=== PATIENT | female | born 1975 | race Caucasian/White ===

== ENCOUNTER 2017-04-08 22:12 | Emergency (ER) | payer SELFPAY ==
[~2017-04-08] VITALS: Ht 162.6 cm; Wt 50.0 kg
[~2017-04-08 22:12] MED LIST: BUPR100CR PO; FIORIC PO; HYDR25R PR; LAMO150 PO; PROM25TA5 PO
[2017-04-08 22:14] VITALS: BP 139/87; PULSE 72; RESP 16; TEMP 98.4; O2SAT 99
--- NOTE | 2017-04-08 22:23 | PD ---
Physical Exam Date Seen by Provider: Apr 08, 2017 Time Seen by Provider: 22:20 Narrative 42 yo female here for evaluation of bilateral flank pain since march 30. History of stones. Not passing. hematuria. No chest pain or SOB. pain is 8/10. Vital signs stable in triage. Awaiting bed placement. Data Data Last Documented VS Vital Signs Date Time Temp Pulse Resp B/P Pulse Ox O2 Delivery O2 Flow Rate FiO2 04/08/17 22:14 98.4 72 16 139/87 99 MDM Medical Record Reviewed: Yes Supervised Visit with JAQUELINE: Evens Gould Apr 08, 2017 22:23
[2017-04-08] MEDS ORDERED: SODIUM CHLOR 0.9% 1000 ML INJ 1,000 ML IV ONE (22:30)
[2017-04-08] MEDS ORDERED: KETOROLAC TROMETHAMINE 30 MG/ML (IVP) VIAL IVP ONE (22:45)
[2017-04-08] MEDS ORDERED: KETO10 PO (22:45)
[2017-04-08] MEDS ORDERED: MORPHINE SULFATE 4 MG/ML INJ IV ONE (22:45)
[2017-04-08] MEDS ORDERED: PROM25TA10 PO (22:45)
[2017-04-08] MEDS ORDERED: ONDANSETRON HCL 4 MG/2 ML VIAL IVP ONE (22:45)
[2017-04-08 22:52] LABS: AUTOMATED NEUTROPHIL # 4.5 TH/MM3 (1.8-7.7); BASOPHIL % 0.5 % (0.0-2.0); EOSINOPHIL # 0.1 TH/MM3 (0-0.4); EOSINOPHIL % 1.7 % (0.0-4.0); HEMATOCRIT 38.7 % (35.0-46.0); HEMO FLAGS DIFF FINAL; LYMPHOCYTE # 2.7 TH/MM3 (1.0-4.8); MEAN CELL VOLUME 88.2 FL (80.0-100.0); MEAN CORPUSCULAR HEMOGLOBIN 30.7 PG (27.0-34.0); MEAN CORPUSCULAR HGB CONC 34.8 % (32.0-36.0); MONO % 7.2 % (0.0-8.0); NEUT % 56.6 % (16.0-70.0); PLATELET COUNT 207 TH/MM3 (150-450); RED BLOOD COUNT 4.38 MIL/MM3 (4.00-5.30); RED CELL DISTRIBUTION WIDTH 12.4 % (11.6-17.2); WHITE BLOOD COUNT 7.9 TH/MM3 (4.0-11.0)
[2017-04-08 23:15] LABS: BLOOD, URINE MOD (NEG); CALCIUM OXALATE CRYSTALS,URINE OCC /hpf; COMMENT (UR) CULTURE INDICATED; CULTURE IF INDICATED CULTURE INDICATED; GLUCOSE,URINE NEG (NEG); KETONE, URINE NEG (NEG); MUCUS URINE FEW /lpf (OCC); NITRITE,URINE NEG (NEG); PH, URINE 5.5 (5.0-8.5); SQUAMOUS EPITHELIAL CELL URINE 5 /hpf (0-5); URINE COLOR YELLOW (YELLW/STRAW)
--- NOTE | 2017-04-08 23:40 | RADRPT ---
EXAM DATE/TIME: 04/08/2017 23:23 [facility] COMPARISON: CT ABDOMEN & PELVIS W CONTRAST, December 31, 2014, 22:23. INDICATIONS : Bilateral flank pain. MEDICAL HISTORY : Renal calculi. SURGICAL HISTORY : section. Lithotripsy. Tubal ligation. ENCOUNTER: Initial ACUITY: 1 day PAIN SCORE: 8/10 LOCATION: Bilateral Abdominal, flank FINDINGS: There is a 5 mm oval calcifications superimposed upon the right transverse process of L2. Several sm aller calcifications are projected of the mid lower pole of both kidneys, 3 on the right and 2 on the left, all measuring 5 mm or less. Calcified phleboliths in the pelvis. The osseous structures are grossly intact. No dilated loops of small or large bowel. CONCLUSION: Bilateral calcification projected over both kidneys suggest renal stones. There is also a 5 mm calci fication in the right flank at the level of L2 which may represent a stone in the extra renal pelvis or proximal ureter. Arcenio Ashley MD on April 08, 2017 at 23:36 Board Certified Radiologist. This report was verified electronically.
[2017-04-08] MEDS ORDERED: PROCHLORPERAZINE INJ 10 MG/2 ML VIAL IV PUSH ONE (23:45)
[2017-04-08 23:53] LABS: ANION GAP 10 MEQ/L (5-15); AST (GOT) 13 U/L (15-37); BICARBONATE 23.5 MEQ/L (21.0-32.0); BLOOD UREA NITROGEN 19 MG/DL (7-18); CHLORIDE 105 MEQ/L (98-107); GLOMERULAR FILTRATION RATE 96 ML/MIN (>89); POTASSIUM 3.3 MEQ/L (3.5-5.1); SODIUM (NA) 138 MEQ/L (136-145)
[2017-04-08 23:54] LABS: ALT (GPT) 20 U/L (10-53)
[2017-04-08 23:56] LABS: ALKALINE PHOSPHATASE 68 U/L (45-117); TOTAL BILIRUBIN ADULT 0.4 MG/DL (0.2-1.0)
--- NOTE | 2017-04-09 00:03 | PD ---
HPI Chief Complaint: Flank/Kidney Pain Time Seen by Provider: 22:29 Travel History International Travel<30 days: No Contact w/Intl Traveler<30days: No Traveled to known affect area: No History of Present Illness HPI HAS H/O KIDNEY STONES, SEES DR HUTCHINSON. C/O RT FLANK PAIN, IN PAST HAS BEEN ABLE TO PASS LARGE 8MM STONES. SHE HAS NOTED HEMATURIA IN ADDITION TO FLANK PAIN, 8/10, RAD FROM RT FLANK TO RLQ, NO IMPROVING OR AGGRAVATING FACTORS. DENIES N/V/D/CP/WERNER AT THIS POINT PFSH Past Medical History Depression: Yes Cancer: Yes (CARCINOMA ENSITUE) High Cholesterol: Yes Diminished Hearing: No Migraines: Yes Tetanus Vaccination: > 5 Years ?: Not LMP: "does not have them" Tubal Ligation: Yes Past Surgical History Section: Yes (X2) Genitourinary Surgery: Yes (LITHOTRIPSY X9) Gynecologic Surgery: Yes (CERVICAL CONE AND BIOPSY) Pacemaker: No Social History Alcohol Use: Yes (occasionaly ) Tobacco Use: No Substance Use: No Allergies-Medications (Allergen,Severity, Reaction): Coded Allergies: Darvocet-N 100 (Verified Allergy, Severe, 04/08/17) Cervidil Vaginal Insert (Verified Adverse Reaction, Severe, 04/08/17) Reported Meds & Prescriptions Reported Meds & Active Scripts Active Reported Ketorolac (Ketorolac Tromethamine) 10 Mg Tab 10 Mg PO TID Phenergan (Promethazine HCl) 25 Mg Tablet 25 Mg PO Q6H PRN Review of Systems Except as stated in HPI: all other systems reviewed are Neg Genitourinary: Positive: Hematuria, Flank Pain Physical Exam Narrative GENERAL: SKIN: Warm and dry. HEAD: Atraumatic. Normocephalic. EYES: Pupils equal and round. No scleral icterus. No injection or drainage. ENT: No nasal bleeding or discharge. Mucous membranes pink and moist. NECK: Trachea midline. No JVD. CARDIOVASCULAR: Regular rate and rhythm. RESPIRATORY: No accessory muscle use. Clear to auscultation. Breath sounds equal bilaterally. GASTROINTESTINAL: Abdomen soft, non-tender, nondistended. Hepatic and splenic margins not palpable. MUSCULOSKELETAL: Extremities without clubbing, cyanosis, or edema. No obvious deformities. NEUROLOGICAL: Awake and alert. No obvious cranial nerve deficits. Motor grossly within normal limits. Five out of 5 muscle strength in the arms and legs. Normal speech. PSYCHIATRIC: Appropriate mood and affect; insight and judgment normal. Data Data Last Documented VS Vital Signs Date Time Temp Pulse Resp B/P Pulse Ox O2 Delivery O2 Flow Rate FiO2 04/08/17 22:14 98.4 72 16 139/87 99 Orders Complete Blood Count With Diff (04/08/17 22:30) Urinalysis - C+S If Indicated (04/08/17 22:30) Ed Urine Pregnancytest Poc (04/08/17 22:30) Ecg Monitoring (04/08/17 22:30) Iv Access Insert/Monitor (04/08/17 22:30) Sodium Chlor 0.9% 1000 Ml Inj (Ns 1000 M (04/08/17 22:30) Ketorolac Inj (Toradol Inj) (04/08/17 22:45) Morphine Inj (Morphine Inj) (04/08/17 22:45) Ondansetron Inj (Zofran Inj) (04/08/17 22:45) Comprehensive Metabolic Panel (04/08/17 23:07) Lipase (04/08/17 23:07) Abdomen, Kub Only (04/08/17 23:07) Urine Culture (04/08/17 22:35) Prochlorperazine Inj (Compazine Inj) (04/08/17 23:45) Labs Laboratory Tests Test 04/08/17 04/08/17 22:35 23:00 White Blood Count 7.9 TH/MM3 Red Blood Count 4.38 MIL/MM3 Hemoglobin 13.5 GM/DL Hematocrit 38.7 % Mean Corpuscular Volume 88.2 FL Mean Corpuscular Hemoglobin 30.7 PG Mean Corpuscular Hemoglobin 34.8 % Concent Red Cell Distribution Width 12.4 % Platelet Count 207 TH/MM3 Mean Platelet Volume 8.5 FL Neutrophils (%) (Auto) 56.6 % Lymphocytes (%) (Auto) 34.0 % Monocytes (%) (Auto) 7.2 % Eosinophils (%) (Auto) 1.7 % Basophils (%) (Auto) 0.5 % Neutrophils # (Auto) 4.5 TH/MM3 Lymphocytes # (Auto) 2.7 TH/MM3 Monocytes # (Auto) 0.6 TH/MM3 Eosinophils # (Auto) 0.1 TH/MM3 Basophils # (Auto) 0.0 TH/MM3 CBC Comment DIFF FINAL Differential Comment Urine Color YELLOW Urine Turbidity HAZY Urine pH 5.5 Urine Specific [place] 1.025 Urine Protein 100 mg/dL Urine Glucose (UA) NEG mg/dL Urine Ketones NEG mg/dL Urine Occult Blood MOD Urine Nitrite NEG Urine Bilirubin NEG Urine Urobilinogen LESS THAN 2.0 MG/DL Urine Leukocyte Esterase LARGE Urine RBC /hpf Urine WBC 114 /hpf Urine Squamous Epithelial 5 /hpf Cells Urine Calcium Oxalate Crystals OCC /hpf Urine Mucus FEW /lpf Microscopic Urinalysis Comment CULTURE INDICATED Sodium Level 138 MEQ/L Potassium Level 3.3 MEQ/L Chloride Level 105 MEQ/L Carbon Dioxide Level 23.5 MEQ/L Anion Gap 10 MEQ/L Blood Urea Nitrogen 19 MG/DL Creatinine 0.68 MG/DL Estimat Glomerular Filtration 96 ML/MIN Rate Random Glucose 97 MG/DL Calcium Level 8.5 MG/DL Total Bilirubin 0.4 MG/DL Aspartate Amino Transf 13 U/L (AST/SGOT) Alanine Aminotransferase 20 U/L (ALT/SGPT) Alkaline Phosphatase 68 U/L Total Protein 6.8 GM/DL Albumin 3.9 GM/DL Lipase 207 U/L [facility] Medical Decision Making Medical Screen Exam Complete: Yes Emergency Medical Condition: Yes Medical Record Reviewed: Yes Differential Diagnosis PYELO V KIDNEY STONE V SBO V RENAL INSUFF V PANCREATITIS Narrative Course NO E/O PYELO, NL RENAL FUNCTIONS, NO PANCREATITIS, KUB SHOWS 5MM URETERAL STONE....PT KINDLY REQUESTED NO NARCOTIC RX , SHE HAS ENOUGH TORADOL AT HOME AND WILL USE THAT INSTEAD. Diagnosis Primary Impression: URETEROLITHIASIS Patient Instructions: General Instructions, Kidney Stones (ED) Scripts Tamsulosin (Flomax)0.4 Mg Cap0.4 Mg PO HS #5 CAP Prov:Derek Fry MD 04/09/17 Disposition: 01 DISCHARGE HOME Condition: Stable Derek Fry MD Apr 09, 2017 00:03
[2017-04-09] MEDS ORDERED: TAMS5CAP PO (01:02)
== END 2017-04-09 01:23 | disposition home or self-care (01) ==
LOC: NEPC 22:12
DX: N20.1 Calculus of ureter (principal); R82.99 Other abnormal findings in urine; E78.00 Pure hypercholesterolemia, unspecified; Z79.899 Other long term (current) drug therapy; Z87.442 Personal history of urinary calculi
CPT/HCPCS: 74000; 80053; 81001; 83690; 84703; 85025; 87086; 96361; 96374; 96375; 99284; J0780; J1885; J2270; J2405; J7030

== ENCOUNTER → 2017-08-28 | Outpatient (CLI) | payer MEDICAID ==
[~2017-08-28] MED LIST changes: -BUPR100CR PO; -FIORIC PO; -HYDR25R PR; +KETO10 PO; -LAMO150 PO; +PROM25TA10 PO; -PROM25TA5 PO; +TAMS5CAP PO
--- NOTE | 2017-08-28 12:52 | RADRPT ---
EXAM DATE/TIME: 08/28/2017 12:33 [facility] COMPARISON: CT ABDOMEN & PELVIS W CONTRAST, December 31, 2014, 22:23. ABDOMEN KUB ONLY, April 08, 2017, 23:23. INDICATIONS : Right side flank pain due to renal stones. Patient states she is aware she has bilateral renal stones . MEDICAL HISTORY : Renal calculi. SURGICAL HISTORY : section. Lithotripsy. Tubal ligation. ENCOUNTER: Initial ACUITY: 2 days PAIN SCORE: 9/10 LOCATION: Right flank FINDINGS: Supine view of the abdomen was performed. The abdominal bowel gas pattern is normal. There is some s tool in the colon which obscures the kidney shadows bilaterally. The previously noted 5 mm calcificat ion in the region of the right renal pelvis is no longer demonstrated. No definite calcifications are seen overlying the right kidney. There appears to be at tiny faint calcification overlying lower pauline e left kidney. There is stable calcified phleboliths deep in the pelvis.. The osseous structures are unremarkable. CONCLUSION: 1. Tiny faint calcification overlying the lower pole the left kidney. 2. No definite calcifications overlying the right kidney. 3. Otherwise, no other significant changes compared to the prior exam. Stan Rae MD on August 28, 2017 at 12:49 Board Certified Radiologist. This report was verified electronically.
== END ==
LOC: HRAD 12:20
PROVIDERS: ATTEND Family Medicine
DX: N20.0 Calculus of kidney (principal)
CPT/HCPCS: 74000